=== PATIENT | male | born 1960 | race American Indian/Alaskan Native ===

== ENCOUNTER 2021-12-13 10:32 | Outpatient (CLI) | payer OTHER ==
--- NOTE | 2021-12-13 11:36 | Cat Scan Report ---
CT ABDOMEN AND PELVIS WITHOUT CONTRAST HISTORY: Z01.89 hx hematuria COMPARISON: None TECHNIQUE: Routine abdominal and pelvic CT exam performed without contrast. Lack of intravenous cont rast limits evaluation of the vascular and solid organs.. All CT scans at this location are performed using CT dose reduction for ALARA by means of automated exposure control. FINDINGS: CT ABDOMEN: Lung Bases: No significant abnormality. Liver: No significant abnormality. Biliary: No significant abnormality. Spleen: No significant abnormality. Unenlarged. Pancreas: No significant abnormality. Adrenals: No significant abnormality. Kidneys: Tiny 2 mm stone in the lower right kidney. No ureteral stone or hydronephrosis. No appreciab le renal mass. Lymphatics: No lymphadenopathy. Vasculature: Atherosclerotic but nonaneurysmal abdominal aorta. Bowel/Peritoneum: No significant abnormality. No free air. No free fluid. CT PELVIC: : No significant abnormality. Lymphatics: No lymphadenopathy. Osseous Structures: No aggressive appearing osseous lesions. Additional Findings: None IMPRESSION: 1. No acute findings. 2. Tiny nonobstructing right intrarenal stone. Signer Name: Lico Luu MD Signed: 12/13/2021 11:30 AM Workstation Name: [employer]
== END 2021-12-13 10:33 | disposition home or self-care (01) ==
LOC: CT 10:32
DX: Z01.89 Encounter for other specified special examinations (principal)
CPT/HCPCS: 74176